=== PATIENT | female | born 1995 | race Caucasian/White ===

== ENCOUNTER 2020-04-30 18:00 | Inpatient (IN) | payer OTHER ==
[2020-04-30 18:46] LABS: Amphetamine,Urine NEGATIVE (NEGATIVE); Barbiturate,Urine NEGATIVE (NEGATIVE); Benzodiazepine,Urine NEGATIVE (NEGATIVE); Cocaine,Urine NEGATIVE (NEGATIVE); Methadone,Urine NEGATIVE (NEGATIVE); Opiate,Urine NEGATIVE (NEGATIVE); PCP,Urine NEGATIVE (NEGATIVE); THC,Urine NEGATIVE (NEGATIVE)
[2020-04-30] MEDS: CYTOTEC PO SCH ×2 (20:01→22:13)
[2020-04-30 20:05] LABS: Absolute Neutrophil Ct (ANC) 4.28 (1.4-6.9); Hematocrit 35.1 % (35-47); Hemoglobin 11.8 gm/dl (12.0-16.0); Mean Cell Volume 85.8 fl (78-100); Mean Corpuscular Hemoglobin 28.9 pg (26-32); Mean Corpuscular Hgb Concent. 33.6 g/dl (32-36); Mean Platelet Volume 11.5 fl (7.5-11.0); Platelet Count 188 K/mm3 (150-450); Red Blood Count 4.09 M/mm3 (4.1-5.4); Red Cell Distribution Width 13.6 % (11.5-14.0); White Blood Count 7.2 K/mm3 (4.0-10.5)
[2020-05-01] MEDS: CYTOTEC PO SCH ×4 (00:01→06:05)
[2020-05-01 02:18] LABS: Eosinophil 3 % (0.00-3.0); Lymphocytes 33 % (24-44); Monocyte 2 % (0.0-12.0); Neutrophils 62 % (36.0-66.0); Platelet Estimate NORMAL (NORMAL); Total Cells Counted 100
[2020-05-01] MEDS ORDERED: CYTOTEC PO SCH (07:15)
[2020-05-01] MEDS ORDERED: BRETHINE 1 MG/ML SQ PRN (08:11)
[2020-05-01] MEDS ORDERED: PITOCIN 30 UNITS/ LR 500 ML 30 UNITS/500 ML IV.SOLN. IV SCH (08:30)
[2020-05-01] MEDS: Lactated Ringers 1,000 ML IV SCH ×2 (09:20→13:30)
[2020-05-01] MEDS ORDERED: OB EPIDURAL NAROPIN/SUFENTANIL IN NACL EPIDURAL PRN (10:04)
[2020-05-01] MEDS ORDERED: Lactated Ringers 1,000 ML IV ONE ×2 (10:04→14:27)
[2020-05-01] MEDS ORDERED: Ephedrine Sulfate 50 MG/ML IV PRN (10:04)
[2020-05-01] MEDS ORDERED: XYLOCAINE 1% HCL 20 ML MDV IJ PRN (12:19)
[2020-05-01] MEDS ORDERED: SOD CITRATE-CITRIC ACID SOLN PO ONE (12:59)
[2020-05-01] MEDS ORDERED: Pepcid 20 MG VIAL IV SCH (13:00)
[2020-05-01] MEDS ORDERED: Reglan 10 MG/2 ML IV SCH (13:00)
[2020-05-01] MEDS ORDERED: CEFAZOLIN 2 GM-D5W BAG** 2 GM/50 ML ML IV SCH (13:30)
[2020-05-01] MEDS ORDERED: Zofran 4 MG/2 ML VIAL IV PRN (13:32)
[2020-05-01] MEDS ORDERED: BENADRYL 50 MG/ML IV PRN (13:32)
[2020-05-01] MEDS ORDERED: DEMEROL 50 MG IV PRN (13:32)
[2020-05-01] MEDS ORDERED: CLARITIN 10 MG PO PRN (13:32)
[2020-05-01] MEDS ORDERED: HOLD NARCOTIC ANALGESICS AND SEDATIVES X24 HR MC PRN (13:32)
[2020-05-01] MEDS ORDERED: Nubain 10 MG/ML IV PRN (13:32)
[2020-05-01] MEDS ORDERED: MORPHINE SULFATE 2 MG INJ IV PRN (13:32)
[2020-05-01] MEDS ORDERED: XYLOCAINE 2%/Epi 1:200000 20ML VIAL MPF ONE (13:36)
[2020-05-01] MEDS ORDERED: SUBLIMAZE 100 MCG/2 ML ONE (13:36)
[2020-05-01 13:48] LABS: Hematocrit 36.9 % (35-47); Hemoglobin 12.3 gm/dl (12.0-16.0); Mean Cell Volume 85.2 fl (78-100); Mean Corpuscular Hemoglobin 28.4 pg (26-32); Mean Corpuscular Hgb Concent. 33.3 g/dl (32-36); Mean Platelet Volume 11.9 fl (7.5-11.0); Platelet Count 207 K/mm3 (150-450); Red Blood Count 4.33 M/mm3 (4.1-5.4); Red Cell Distribution Width 13.7 % (11.5-14.0); White Blood Count 14.5 K/mm3 (4.0-10.5)
[2020-05-01 13:59] LABS: INR 0.97 (0.8-3.0)
[2020-05-01] MEDS ORDERED: Sodium Chloride 0.9% 10 ML FLUSH Syringe IJ SCH (14:00)
[2020-05-01 14:02] LABS: PTT 27.9 SECONDS (25.3-37.0)
[2020-05-01] MEDS ORDERED: PHENYLEPHRINE HCL ONE (14:07)
[2020-05-01] MEDS ORDERED: Pitocin 10 UNITS/ML ONE (14:12)
[2020-05-01] MEDS ORDERED: Ephedrine Sulfate 50 MG/ML ONE (14:27)
[2020-05-01] MEDS ORDERED: Astramorph-Pf 5 MG/10 ML ONE (14:32)
[2020-05-01] MEDS ORDERED: Naropin 0.5% 30 ML VIAL ONE (14:35)
[2020-05-01] MEDS ORDERED: EPINEPHRINE 1MG/ML AMP ONE (14:35)
[2020-05-01] MEDS ORDERED: Decadron 4 MG INJ ONE (14:35)
[2020-05-01 14:49] LABS: Appearance SLIGHTLY CLOUDY (CLEAR); Bilirubin NEGATIVE (NEGATIVE); Blood NEGATIVE Ery/ul (0-5); Epithelial Cells RARE /HPF (FEW); Glucose NEGATIVE (NEGATIVE); Ketones NEGATIVE (NEGATIVE); Leukocyte Esterase NEGATIVE (NEGATIVE); Mucus MANY /HPF (NEGATIVE); Nitrite NEGATIVE (NEGATIVE); Protein,Urine Dip 30 (Negative); RBC 0-2 /HPF (0-2); Specific Gravity 1.026 (1.005-1.025); Urobilinogen NEGATIVE mg/dL (0-1)
[2020-05-01 14:51] LABS: ABO TYPING A; Antibody Screen NEGATIVE (NEGATIVE); RH TYPING POSITIVE
[2020-05-01] MEDS ORDERED: Narcan 0.4 MG/ML IV PRN (15:00)
[2020-05-01] MEDS ORDERED: TYLENOL EXTRA STRENGTH 500 MG PO PRN (15:21)
[2020-05-01] MEDS ORDERED: Dextrose 5%-Lr IV Solution 1000 ML 1,000 ML IV SCH (16:00)
[2020-05-01] MEDS: Colace 100 MG PO SCH (22:23)
[2020-05-02] MEDS: Lactated Ringers 1,000 ML IV SCH (00:54)
[2020-05-02] MEDS: MOTRIN 400 MG PO PRN ×3 (05:29→19:36)
[2020-05-02] MEDS: PERCOCET TABLET 5/325MG PO PRN ×2 (05:29→12:26)
[2020-05-02 06:21] LABS: Absolute Neutrophil Ct (ANC) 10.58 (1.4-6.9); BASOPHIL % 0.1 % (0.0-0.4); Basophil (Absolute #) 0.01 (0-0.4); Eosinophil % 0.1 % (0.00-5.0); Eosinophil (Absolute #) 0.01 (0-0.5); Hematocrit 28.8 % (35-47); Hemoglobin 9.5 gm/dl (12.0-16.0); Lymphocyte (Absolute #) 1.59 (1.0-4.6); Mean Cell Volume 87.8 fl (78-100); Mean Platelet Volume 12.2 fl (7.5-11.0); Monocyte (Absolute #) 1.01 (0.0-1.3); Monocytes % 7.7 % (0.0-12.0); Neutrophil % 80.1 % (36.0-66.0); Platelet Count 172 K/mm3 (150-450); Red Blood Count 3.28 M/mm3 (4.1-5.4); Red Cell Distribution Width 13.7 % (11.5-14.0); White Blood Count 13.2 K/mm3 (4.0-10.5)
[2020-05-02 09:20] VITALS: O2SAT 100
[2020-05-02] MEDS: FERREX 150 PO SCH (12:27)
[2020-05-02] MEDS: Colace 100 MG PO SCH ×2 (12:27→21:02)
[2020-05-02] MEDS: NORCO 5/325 MG PO PRN (19:36)
[2020-05-02] MEDS ORDERED: LANSINOH 40 GM TOP PRN (20:59)
[2020-05-03] MEDS: MOTRIN 400 MG PO PRN ×3 (01:14→15:55)
[2020-05-03] MEDS: NORCO 5/325 MG PO PRN ×4 (01:15→16:59)
[2020-05-03] MEDS: FERREX 150 PO SCH (09:07)
[2020-05-03] MEDS: Colace 100 MG PO SCH (09:07)
[2020-05-03] MEDS ORDERED: Adacel Vial IM ONE (10:00)
--- NOTE | 2020-05-03 11:55 | OP ---
SURGERY DATE/TIME: 05/01/2020 1349 PREOPERATIVE DIAGNOSES: 1) Nonreassuring heart tones. 2) Term intrauterine in labor. POSTOPERATIVE DIAGNOSES: 1) Nonreassuring heart tones. 2) Term intrauterine in labor. PROCEDURE: Primary low transverse section. SURGEON: Gui Oneal M.D. ANESTHESIA: Epidural by Ted Ellis CRNA. ESTIMATED BLOOD LOSS: 400 ml. IV FLUIDS: 600 cc of Crystalloid. URINE OUTPUT: 250 ml clear straw-colored urine. SPECIMEN: Placenta was sent for pathology. DESCRIPTION OF PROCEDURE: The patient is a patient of Dr. Moreno who is 2, para 1 at 39 weeks. She was in labor and developed nonreassuring heart tones with persistent late decelerations and variable decelerations. The decision was made after informed, written consent was obtained. I discussed the bleeding, risk of infection and damage to surrounding structures including bladder and ureter to the patient. She elected to proceed with primary section as advised at that point. She went to the OR after she had her previously placed laboring epidural dosed by anesthesia. Prepped and draped in the usual sterile fashion. After adequate level of anesthesia assessed, a low transverse skin incision was made by knife and carried down through the subcutaneous fat to the level of the fascia. The fascia was nicked on both sides of the midline and extended in horizontal fashion using curved Villalta scissors. The superior free edge of the fascia was grasped with Pedrito clamps and the underlying rectus muscles were dissected free. The same was repeated inferiorly. The peritoneal cavity was opened and extended horizontal and a bladder blade was created and reflected over the lower uterine segment. Horizontal uterine incision was made by knife and carried down to the level of the amniotic membranes which were carefully artificially ruptured. A viable male infant was delivered from the vertex presentation with nuchal and body cord present. The cord was clamped and cub. He had a strong cry after bulb suctioning the oropharynx and nares. He was handed off to the awaiting nursery team. The uterus was exteriorized after the placenta was manually extracted. Lap sponge was used to curette the uterine cavity to remove any blood, clot or remaining membranes. Next, the uterine incision was closed with #1 chromic in a running locked fashion. Good closure and good hemostasis were achieved. There was a small area of oozing in the lower uterine segment which was controlled with two figure-of-8 sutures placed. Afterwards adequate hemostasis was achieved. Good closure of the uterine incision was noted upon return to the peritoneal cavity after the posterior cul-de-sac was wiped free of blood and clot. The lateral gutters were wiped free of blood and clot and again the incision was inspected and noted to be hemostatic with good closure. Next, the fascia was closed with 0 Vicryl in a running fashion. Good closure and good hemostasis were achieved at this level. The subcutaneous fat was irrigated with warm, sterile saline and any areas of oozing were cauterized with electrocautery. The skin layer was closed with 4-0 undyed Vicryl in a running subcuticular fashion. Steri-Strips and occlusive dressing were placed over the incision and the patient was transferred to the recovery room in good condition.
[2020-05-03 14:01] LABS: Absolute Neutrophil Ct (ANC) 9.46 (1.4-6.9); BASOPHIL % 0.2 % (0.0-0.4); Basophil (Absolute #) 0.02 (0-0.4); Eosinophil % 1.1 % (0.00-5.0); Eosinophil (Absolute #) 0.13 (0-0.5); Hematocrit 30.7 % (35-47); Hemoglobin 9.9 gm/dl (12.0-16.0); Lymphocyte (Absolute #) 1.88 (1.0-4.6); Lymphocytes % 15.6 % (24.0-44.0); Mean Cell Volume 89.5 fl (78-100); Mean Corpuscular Hemoglobin 28.9 pg (26-32); Mean Corpuscular Hgb Concent. 32.2 g/dl (32-36); Mean Platelet Volume 11.1 fl (7.5-11.0); Monocyte (Absolute #) 0.59 (0.0-1.3); Monocytes % 4.9 % (0.0-12.0); Neutrophil % 78.2 % (36.0-66.0); Platelet Count 193 K/mm3 (150-450); Red Blood Count 3.43 M/mm3 (4.1-5.4); Red Cell Distribution Width 14.1 % (11.5-14.0); White Blood Count 12.1 K/mm3 (4.0-10.5)
[2020-05-03 15:06] VITALS: BP 137/86; PULSE 78
== END 2020-05-03 19:15 | disposition home or self-care (01) | DRG 788 ==
LOC: OB 18:00 → OBSVTOIN 05-01 12:40
PROVIDERS: ADMIT Family Medicine; ATTEND Family Medicine
PROC: 10D00Z1 Extraction of Products of Conception, Low, Open Approach (ICD-10-PCS; principal; 2020-05-01)
DX: O76 Abnormality in fetal heart rate and rhythm complicating labor and delivery (principal); Z3A.39 39 weeks gestation of pregnancy; Z37.0 Single live birth
CPT/HCPCS: 36415; 64488; 76937; 76942; 80307; 81001; 85025; 85027; 85610; 85730; 86850; 86900; 86901; 87086; 87340; 88307; 94799; G0378; J0171; J1100; J1200; J2274; J2370; J2590; J2795; J3010; L0625; A9270-GY

== ENCOUNTER 2022-03-22 05:13 | Inpatient (IN) | payer OTHER ==
[~2022-03-22 05:13] MED LIST: CEFAZOLIN 2 GM-D5W BAG** 2 GM/50 ML ML IV SCH; Lactated Ringers 1,000 ML IV ONE; Pepcid 20 MG VIAL IV SCH; Reglan 10 MG/2 ML IV SCH; SOD CITRATE-CITRIC ACID SOLN PO SCH
[2022-03-22] MEDS: Lactated Ringers 1,000 ML IV SCH (05:24)
[2022-03-22 05:46] LABS: Hematocrit 33.9 % (35-47); Hemoglobin 11.1 g/dL (12.0-16.0); Mean Cell Volume 83.1 fL (78-100); Mean Corpuscular Hemoglobin 27.2 pg (26-32); Mean Corpuscular Hgb Concent. 32.7 g/dL (32-36); Mean Platelet Volume 11.8 fL (7.5-11.0); Platelet Count 261 x10^3/uL (150-450); Red Blood Count 4.08 x10^6/uL (4.1-5.4); Red Cell Distribution Width 13.8 % (11.5-14.0); White Blood Count 8.7 x10^3/uL (4.0-10.5)
[2022-03-22 06:01] LABS: INR 0.89 (0.8-3.0); PROTIME 9.5 SECONDS (9.4-12.5); PTT 25.4 SECONDS (25.1-36.5)
[2022-03-22 06:28] LABS: ABO TYPING A; Antibody Screen NEGATIVE (NEGATIVE); RH TYPING POSITIVE
[2022-03-22] MEDS ORDERED: Pitocin 10 UNITS/ML ONE ×3 (07:26→08:19)
[2022-03-22] MEDS ORDERED: Astramorph-Pf 5 MG/10 ML ONE (07:27)
[2022-03-22] MEDS ORDERED: Lactated Ringers 1,000 ML IV ONE (07:42)
[2022-03-22] MEDS ORDERED: CLARITIN 10 MG PO PRN (08:00)
[2022-03-22] MEDS ORDERED: Nubain 10 MG/ML IV PRN (08:00)
[2022-03-22] MEDS ORDERED: Dulcolax 10 MG SUPP PR PRN (08:00)
[2022-03-22] MEDS ORDERED: Anucort-HC SUPPOSITORY PR PRN (08:00)
[2022-03-22] MEDS ORDERED: Narcan 0.4 MG/ML IV PRN (08:00)
[2022-03-22] MEDS ORDERED: CORTISONE 1% CREAM TP PRN (08:00)
[2022-03-22] MEDS ORDERED: Zofran 4 MG/2 ML VIAL IV PRN (08:00)
[2022-03-22] MEDS ORDERED: BENADRYL 50 MG/ML IV PRN (08:00)
[2022-03-22] MEDS ORDERED: SUBLIMAZE 100 MCG/2 ML ONE (08:09)
[2022-03-22] MEDS ORDERED: Versed 2 MG/2 ML Injection ONE (08:11)
[2022-03-22 08:33] LABS: Appearance CLEAR (CLEAR); Bilirubin NEGATIVE (NEGATIVE); Dipstick done @ ? MAIN LAB; Glucose NEGATIVE (NEGATIVE); Ketones NEGATIVE (NEGATIVE); Nitrite NEGATIVE (NEGATIVE); Protein,Urine Dip NEGATIVE (Negative); RBC NEGATIVE Ery/ul (0-5); Specific Gravity 1.025 (1.005-1.025); Urobilinogen 0.2 mg/dL (0-1)
[2022-03-22] MEDS ORDERED: Marcaine 0.5%/Epinephrine 10 ML ONE (08:35)
[2022-03-22 08:43] LABS: Mucus SLIGHT /HPF (NEGATIVE); RBC 0-2 /HPF (0-2)
[2022-03-22 08:45] LABS: Bacteria FEW /HPF (NEGATIVE); Epithelial Cells RARE /HPF (FEW); Urine Cultured Indicated? YES
[2022-03-22 08:54] LABS: Amphetamine,Urine NEGATIVE (NEGATIVE); Barbiturate,Urine NEGATIVE (NEGATIVE); Benzodiazepine,Urine NEGATIVE (NEGATIVE); Cocaine,Urine NEGATIVE (NEGATIVE); Methadone,Urine NEGATIVE (NEGATIVE); Opiate,Urine NEGATIVE (NEGATIVE); PCP,Urine NEGATIVE (NEGATIVE); THC,Urine NEGATIVE (NEGATIVE)
[2022-03-22] MEDS ORDERED: TORAdol 30 mg Injection ONE (08:59)
[2022-03-22] MEDS ORDERED: BENADRYL 50 MG/ML ONE (09:00)
[2022-03-22] MEDS ORDERED: LANSINOH 40 GM TOP PRN (09:00)
[2022-03-22] MEDS ORDERED: DEMEROL 50 MG ONE (09:32)
[2022-03-22] MEDS ORDERED: Hydromorphone 1 mg/ml Injection ONE (09:33)
[2022-03-22 09:49] LABS: Appearance CLEAR (CLEAR); Bilirubin NEGATIVE (NEGATIVE); Dipstick done @ ? MAIN LAB; Glucose NEGATIVE (NEGATIVE); Ketones NEGATIVE (NEGATIVE); Nitrite NEGATIVE (NEGATIVE); Protein,Urine Dip NEGATIVE (Negative); RBC TRACE-INTACT Ery/ul (0-5); Specific Gravity 1.025 (1.005-1.025); Urobilinogen 0.2 mg/dL (0-1)
[2022-03-22 09:51] LABS: Epithelial Cells RARE /HPF (FEW); Mucus SLIGHT /HPF (NEGATIVE)
[2022-03-22] MEDS ORDERED: DEMEROL 50 MG IV PRN (10:00)
[2022-03-22] MEDS ORDERED: HOLD NARCOTIC ANALGESICS AND SEDATIVES X24 HR MC PRN (10:00)
[2022-03-22] MEDS ORDERED: MORPHINE SULFATE 2 MG INJ IV PRN (10:00)
--- NOTE | 2022-03-22 10:17 | OP ---
SURGERY DATE/TIME: 03/22/2022 0734 PREOPERATIVE DIAGNOSES: 1) Term intrauterine . 2) History of prior section. 3) Desires permanent sterilization. POSTOPERATIVE DIAGNOSES: 1) Term intrauterine . 2) History of prior section. 3) Desires permanent sterilization. PROCEDURES: 1) Repeat low transverse section. 2) Bilateral tubal ligation. SURGEON: Gui Oneal M.D. ESTIMATED BLOOD LOSS: 500 ml. URINE OUTPUT: 100 ml of clear straw-colored urine. ANESTHESIA: Spinal by Jorge Blanco CRNA. SPECIMENS: 1) Bilateral fallopian tube segments. 2) Placenta was sent off pathology. DESCRIPTION OF PROCEDURE: After informed written consent was obtained, the patient was taken to the operating room. She did have on the chart tubal ligation consent initially signed on 01/02/2022 by the patient. I verified that she wants permanent sterilization prior to the procedure and she elected to proceed. She understood the permanent nature and accepted the failure rate of 1 in 300. She was prepped and draped in the usual sterile fashion after spinal anesthesia. Anesthesia was assessed. The patient required some propofol prior to beginning the procedure due to some mild pain. A low transverse skin incision was made by knife and carried down through the subcutaneous fat to the level of the fascia. The fascia was nicked in the midline and extended horizontal using curved Villalta scissors. Superior free edge of the fascia was grasped with Pedrito clamps and the underlying rectus muscles were dissected free. The same was repeated inferiorly. The peritoneal cavity was opened and extended horizontally. The bladder was adhesed to the middle anterior segment of the uterus therefore I carefully took down this area with Metzenbaum scissors. After that was cleared and a bladder flap was created a knife made a horizontal uterine incision then carried down to the level of the amniotic membranes which were carefully artificially ruptured. Clear fluid was encountered and a viable female infant was delivered easily from the vertex presentation. The oropharynx and nares were bulb suctioned free. The cord was clamped and cut and she was handed off to the awaiting nursery team. The placenta was manually extracted and the uterus was exteriorized. Uterine cavity sponge curetted clean with lap sponge and then uterine incision was closed with #1 chromic in a running locked fashion with good closure, good hemostasis. Another suture was used to close the defect where the bladder was adhesed which was above the uterine incision. Running #1 chromic was used to control bleeding there and then a figure-of-8 was placed with 2-0 Vicryl with good closure and good hemostasis achieved all around. The left fallopian tube was identified and followed down to the fimbrial edge. It was grasped with a Mila and then cautery used to make a window in the mesoappendix. The proximal and distal tube segments were then ligated with chromic tie. Interceding tube segment was dissected free with Metzenbaum scissors. The edge of the tube identified, cauterized with electrocautery on the left. The same was repeated on the right side without incident. The posterior cul-de-sac was wiped free of blood and clot and the uterus was returned to the peritoneal cavity. Again, the uterine incision was inspected and noted to be hemostatic. The lateral gutters were wiped free of blood and clot. Next, the fascia was closed with 0 Vicryl in a running fashion. Good closure and good hemostasis were achieved at this level. Subcutaneous fat was irrigated with warm, sterile saline and any areas of bleeding were cauterized with electrocautery. Finally, the skin layer was closed with 4-0 undyed Vicryl in a running subcuticular fashion. Steri-Strips and occlusive dressing were placed over the incision. Instrument count was noted to be within normal limits. The patient was transferred to the recovery room in good condition.
[2022-03-22] MEDS: Dextrose 5%-Lr IV Solution 1000 ML 1,000 ML IV SCH ×2 (11:27→19:35)
[2022-03-22] MEDS: Mylicon 80MG PO PRN (18:25)
[2022-03-22] MEDS: PERCOCET TABLET 5/325MG PO PRN (19:35)
[2022-03-23] MEDS: PERCOCET TABLET 5/325MG PO PRN ×2 (00:13→07:51)
[2022-03-23] MEDS: Mylicon 80MG PO PRN ×3 (00:13→22:05)
[2022-03-23] MEDS: MOTRIN 400 MG PO PRN ×3 (05:11→20:25)
[2022-03-23 05:35] LABS: Absolute Neutrophil Ct (ANC) 5.34 x10^3/uL (1.4-6.9); Basophil (Absolute #) 0.06 x10^3/uL (0-0.4); Eosinophil % 3.3 % (0.00-5.0); Eosinophil (Absolute #) 0.29 x10^3/uL (0-0.5); Hematocrit 27.7 % (35-47); Hemoglobin 8.7 g/dL (12.0-16.0); Lymphocyte (Absolute #) 2.28 x10^3/uL (1.0-4.6); Lymphocytes % 26.1 % (24.0-44.0); Mean Corpuscular Hemoglobin 26.7 pg (26-32); Mean Corpuscular Hgb Concent. 31.4 g/dL (32-36); Mean Platelet Volume 11.1 fL (7.5-11.0); Monocyte (Absolute #) 0.73 x10^3/uL (0.0-1.3); Monocytes % 8.4 % (0.0-12.0); Platelet Count 197 x10^3/uL (150-450); Red Blood Count 3.26 x10^6/uL (4.1-5.4); White Blood Count 8.7 x10^3/uL (4.0-10.5)
[2022-03-23] MEDS: Docusate Sodium 100 MG PO SCH ×3 (07:08→22:05)
[2022-03-23] MEDS ORDERED: Sodium Chloride 0.9% 10 ML FLUSH Syringe IV PRN (08:00)
--- NOTE | 2022-03-23 08:29 | PCM.NOTE ---
Date and Time: 03/23/22823 Subjective Assessment: mild lochia, pain is controlled. no problems or concerns overnight Objective Exam General Appearance: no apparent distress Neurologic Exam: alert, oriented x 3 Respiratory Exam: normal breath sounds, lungs clear, No respiratory distress Cardiovascular Exam: regular rate/rhythm, normal heart sounds Gastrointestinal/Abdomen Exam: soft (dressing clean, dry, intact) Extremity Exam: normal inspection, normal range of motion OBJECTIVE DATA Vital Signs: Vital Signs - 24 hr Temp Pulse Resp BP Pulse Ox 03/23/22 08:00 100 03/23/22 07:57 97.6 F 72 16 116/67 100 03/23/22 07:00 100 03/23/22 06:00 100 03/23/22 05:00 100 03/23/22 04:00 98 F 64 18 122/60 100 03/23/22 03:00 99 03/23/22 02:00 100 03/23/22 01:00 100 03/23/22 00:00 98.1 F 68 16 123/59 100 03/22/22 22:00 100 03/22/22 21:00 100 03/22/22 20:56 100 03/22/22 20:00 100 03/22/22 19:46 98.4 F 80 18 132/65 100 03/22/22 19:00 100 03/22/22 18:00 100 03/22/22 17:00 100 03/22/22 16:00 99 03/22/22 15:00 98 03/22/22 14:00 98.1 F 80 14 118/57 98 03/22/22 13:00 61 12 116/55 98 03/22/22 12:00 72 12 115/69 99 03/22/22 11:00 98.4 F 78 14 120/62 100 03/22/22 10:45 67 14 100 03/22/22 10:30 59 L 14 117/63 100 03/22/22 10:15 69 126/66 100 03/22/22 10:00 97.8 F 81 14 137/67 100 Pain Assessment - Last Documented Pain Intensity [Bilateral 5 Lower] Pain Intensity 5 Pain Scale Used 0-10 Pain Scale Intake and Output: Intake & Output 03/20/22 03/21/22 03/22/22 03/23/22 11:59 11:59 11:59 11:59 Intake Total 5015 Output Total 2873 Balance 2465 Weight 97.522 kg Lab Results: Lab Results-Last 24 Hours 03/22/22 03/22/22 03/22/22 Range/Units 08:00 08:00 09:00 WBC (4.0-10.5) x10^3/uL RBC (4.1-5.4) x10^6/uL Hgb (12.0-16.0) g/dL Hct (35-47) % MCV (78-100) fL MCH (26-32) pg MCHC (32-36) g/dL RDW (11.5-14.0) % Plt Count (150-450) x10^3/uL MPV (7.5-11.0) fL Gran % (36.0-66.0) % Immature Gran % (Auto) (0.00-0.4) % Nucleat RBC Rel Count (0.00-0.1) % Eos # (Auto) (0-0.5) x10^3/uL Immature Gran # (Auto) (0.00-0.03) x10^3u/L Absolute Lymphs (auto) (1.0-4.6) x10^3/uL Absolute Monos (auto) (0.0-1.3) x10^3/uL Absolute Nucleated RBC (0.00-0.01) x10^3u/L Lymphocytes % (24.0-44.0) % Monocytes % (0.0-12.0) % Eosinophils % (0.00-5.0) % Basophils % (0.0-0.4) % Absolute Granulocytes (1.4-6.9) x10^3/uL Basophils # (0-0.4) x10^3/uL Urinalys Dipstick Clnc MAIN LAB MAIN LAB Urine Color YELLOW YELLOW (YELLOW) Urine Appearance CLEAR CLEAR (CLEAR) Urine pH 6.0 7.0 (5-6) Ur Specific Otis 1.025 1.025 (1.005-1.025) Urine Protein Cancelled POC Urine Protein Conf NEGATIVE NEGATIVE (Negative) Urine Ketones NEGATIVE NEGATIVE (NEGATIVE) Urine Blood Cancelled Urine Nitrite NEGATIVE NEGATIVE (NEGATIVE) Urine Bilirubin NEGATIVE NEGATIVE (NEGATIVE) Urine Urobilinogen 0.2 0.2 (0-1) mg/dL Ur Leukocyte Esterase Cancelled Urine Leukocytes SMALL NEGATIVE (NEGATIVE) Urine WBC (Auto) 11-15 3-5 (0-5) /HPF Urine RBC (Auto) 0-2 3-5 (0-2) /HPF U Epithel Cells (Auto) RARE RARE (FEW) /HPF Urine Bacteria (Auto) FEW NONE (NEGATIVE) /HPF Urine RBC NEGATIVE TRACE-INTACT (0-5) True/ul U Non-Squamous Epi Cells Cancelled Urine Mucus (Auto) SLIGHT SLIGHT (NEGATIVE) /HPF Ur Culture Indicated? YES Urine Glucose NEGATIVE NEGATIVE (NEGATIVE) mg/dL Urine Opiates Level NEGATIVE (NEGATIVE) Ur Methadone NEGATIVE (NEGATIVE) Urine Barbiturates NEGATIVE (NEGATIVE) Ur Phencyclidine (PCP) NEGATIVE (NEGATIVE) Urine Amphetamine NEGATIVE (NEGATIVE) U Benzodiazepine Level NEGATIVE (NEGATIVE) Urine Cocaine NEGATIVE (NEGATIVE) Urine Marijuana (THC) NEGATIVE (NEGATIVE) 03/23/22 Range/Units 05:30 WBC 8.7 (4.0-10.5) x10^3/uL RBC 3.26 L (4.1-5.4) x10^6/uL Hgb 8.7 L D (12.0-16.0) g/dL Hct 27.7 L (35-47) % MCV 85.0 (78-100) fL MCH 26.7 (26-32) pg MCHC 31.4 L (32-36) g/dL RDW 14.0 (11.5-14.0) % Plt Count 197 (150-450) x10^3/uL MPV 11.1 H (7.5-11.0) fL Gran % 61.0 (36.0-66.0) % Immature Gran % (Auto) 0.5 H (0.00-0.4) % Nucleat RBC Rel Count 0.0 (0.00-0.1) % Eos # (Auto) 0.29 (0-0.5) x10^3/uL Immature Gran # (Auto) 0.04 H (0.00-0.03) x10^3u/L Absolute Lymphs (auto) 2.28 (1.0-4.6) x10^3/uL Absolute Monos (auto) 0.73 (0.0-1.3) x10^3/uL Absolute Nucleated RBC 0.00 (0.00-0.01) x10^3u/L Lymphocytes % 26.1 (24.0-44.0) % Monocytes % 8.4 (0.0-12.0) % Eosinophils % 3.3 (0.00-5.0) % Basophils % 0.7 (0.0-0.4) % Absolute Granulocytes 5.34 (1.4-6.9) x10^3/uL Basophils # 0.06 (0-0.4) x10^3/uL Urinalys Dipstick Clnc Urine Color (YELLOW) Urine Appearance (CLEAR) Urine pH (5-6) Ur Specific Otis (1.005-1.025) Urine Protein POC Urine Protein Conf (Negative) Urine Ketones (NEGATIVE) Urine Blood Urine Nitrite (NEGATIVE) Urine Bilirubin (NEGATIVE) Urine Urobilinogen (0-1) mg/dL Ur Leukocyte Esterase Urine Leukocytes (NEGATIVE) Urine WBC (Auto) (0-5) /HPF Urine RBC (Auto) (0-2) /HPF U Epithel Cells (Auto) (FEW) /HPF Urine Bacteria (Auto) (NEGATIVE) /HPF Urine RBC (0-5) True/ul U Non-Squamous Epi Cells Urine Mucus (Auto) (NEGATIVE) /HPF Ur Culture Indicated? Urine Glucose (NEGATIVE) mg/dL Urine Opiates Level (NEGATIVE) Ur Methadone (NEGATIVE) Urine Barbiturates (NEGATIVE) Ur Phencyclidine (PCP) (NEGATIVE) Urine Amphetamine (NEGATIVE) U Benzodiazepine Level (NEGATIVE) Urine Cocaine (NEGATIVE) Urine Marijuana (THC) (NEGATIVE) Assessment/Plan (1) Delivery by section Current Visit: No Status: Acute Assessment & Plan: routine post-op care Code(s): CHK7140 - (2) Tubal ligation status Current Visit: Yes Status: Acute Code(s): Z98.51 - TUBAL LIGATION STATUS
[2022-03-23] MEDS: FERREX 150 PO SCH (08:45)
[2022-03-23] MEDS ORDERED: Adacel Vial IM ONE (10:00)
[2022-03-23 10:46] LABS: HBsAg Screen Negative (Negative)
[2022-03-23] MEDS: NORCO 5/325 MG PO PRN ×3 (12:38→22:05)
[2022-03-23] MEDS: TYLENOL EXTRA STRENGTH 500 MG PO PRN (20:25)
[2022-03-23] MEDS: Dextrose 5%-Lr IV Solution 1000 ML 1,000 ML IV SCH ×2 (20:44→20:45)
[2022-03-23] MEDS: Lactated Ringers 1,000 ML IV SCH (20:45)
[2022-03-24 00:53] VITALS: O2SAT 97
[2022-03-24] MEDS: MOTRIN 400 MG PO PRN ×2 (02:30→10:35)
[2022-03-24] MEDS: TYLENOL EXTRA STRENGTH 500 MG PO PRN ×2 (02:30→10:36)
[2022-03-24 05:46] LABS: Absolute Neutrophil Ct (ANC) 7.04 x10^3/uL (1.4-6.9); Basophil (Absolute #) 0.02 x10^3/uL (0-0.4); Eosinophil % 0.6 % (0.00-5.0); Eosinophil (Absolute #) 0.05 x10^3/uL (0-0.5); Hematocrit 28.5 % (35-47); Hemoglobin 9.2 g/dL (12.0-16.0); Lymphocyte (Absolute #) 0.67 x10^3/uL (1.0-4.6); Lymphocytes % 8.3 % (24.0-44.0); Mean Cell Volume 84.3 fL (78-100); Mean Corpuscular Hemoglobin 27.2 pg (26-32); Mean Corpuscular Hgb Concent. 32.3 g/dL (32-36); Mean Platelet Volume 11.4 fL (7.5-11.0); Monocyte (Absolute #) 0.22 x10^3/uL (0.0-1.3); Monocytes % 2.7 % (0.0-12.0); Neutrophil % 87.7 % (36.0-66.0); Platelet Count 234 x10^3/uL (150-450); Red Blood Count 3.38 x10^6/uL (4.1-5.4); Red Cell Distribution Width 14.3 % (11.5-14.0)
[2022-03-24] MEDS: NORCO 5/325 MG PO PRN ×2 (06:12→14:31)
[2022-03-24] MEDS: Mylicon 80MG PO PRN (06:12)
[2022-03-24 06:48] LABS: ALBUMIN 2.8 g/dL (3.5-5.0); ALKALINE PHOSPHATASE 94 U/L (38-126); ANION GAP 7.4 MEQ/L (5-15); BLOOD UREA NITROGEN 6 mg/dL (7-17); CHLORIDE 104 mmol/L (98-107); Calcium 7.5 mg/dL (8.4-10.2); Carbon Dioxide 25 mmol/L (22-30); Creatinine 1 0.49 mg/dL (0.52-1.04); EST GLOMERULAR FILTRATION RATE > 60.0 ML/MIN; Glucose 94 mg/dL (74-106); Potassium 3.9 mmol/L (3.5-5.1); SGOT/AST 24 U/L (14-36); SGPT/ALT 16 U/L (0-35); SODIUM 133 mmol/L (137-145); Total Protein 5.6 g/dL (6.3-8.2)
[2022-03-24 08:29] VITALS: PULSE 83
--- NOTE | 2022-03-24 08:45 | PCM.DS ---
Discharge Summary Date of Admission: 03/22/22 05:14 Admitting Physician: RONDA AGARWAL Consults: Consults on Case 03/21/22 13:54 Notify Anesthesia Provider PRN 03/22/22 05:00 Notify Physician OF ADMISSION Primary Care Provider: RONDA AGARWAL Allergies Allergies No Known Drug Allergies Allergy (Verified 03/22/22 05:30) Hospital Summary - Hospital Course Hospital Course: patient had repeat with BTL on 03-22, no complications. pain is controlled, mild lochia and tolerating po intake post-op - Vitals & Intake/Output Vital Signs: Vital Signs Temperature 98.1 F 03/24/22 08:00 Pulse Rate 83 03/24/22 08:00 Respiratory Rate 18 03/24/22 08:00 Blood Pressure 114/59 03/24/22 08:00 O2 Sat by Pulse Oximetry 97 03/24/22 04:00 Intake & Output: Intake & Output 03/21/22 03/22/22 03/23/22 03/24/22 11:59 11:59 11:59 11:59 Intake Total 5015 1420 Output Total 2550 Balance 2465 1420 Weight 97.522 kg - Lab Result Diagrams: 03/24/22 05:30 03/24/22 05:30 Lab Results-Last 24 Hrs: Lab Results-Last 24 Hours 03/22/22 03/24/22 03/24/22 Range/Units 05:36 05:30 05:30 WBC 8.0 (4.0-10.5) x10^3/uL RBC 3.38 L (4.1-5.4) x10^6/uL Hgb 9.2 L (12.0-16.0) g/dL Hct 28.5 L (35-47) % MCV 84.3 (78-100) fL MCH 27.2 (26-32) pg MCHC 32.3 (32-36) g/dL RDW 14.3 H (11.5-14.0) % Plt Count 234 (150-450) x10^3/uL MPV 11.4 H (7.5-11.0) fL Gran % 87.7 H (36.0-66.0) % Immature Gran % (Auto) 0.5 H (0.00-0.4) % Nucleat RBC Rel Count 0.0 (0.00-0.1) % Eos # (Auto) 0.05 (0-0.5) x10^3/uL Immature Gran # (Auto) 0.04 H (0.00-0.03) x10^3u/L Absolute Lymphs (auto) 0.67 L (1.0-4.6) x10^3/uL Absolute Monos (auto) 0.22 (0.0-1.3) x10^3/uL Absolute Nucleated RBC 0.00 (0.00-0.01) x10^3u/L Lymphocytes % 8.3 L (24.0-44.0) % Monocytes % 2.7 (0.0-12.0) % Eosinophils % 0.6 (0.00-5.0) % Basophils % 0.2 (0.0-0.4) % Absolute Granulocytes 7.04 H (1.4-6.9) x10^3/uL Basophils # 0.02 (0-0.4) x10^3/uL Sodium 133 L (137-145) mmol/L Potassium 3.9 (3.5-5.1) mmol/L Chloride 104 (98-107) mmol/L Carbon Dioxide 25 (22-30) mmol/L Anion Gap 7.4 (5-15) MEQ/L BUN 6 L (7-17) mg/dL Creatinine 0.49 L (0.52-1.04) mg/dL Estimated GFR > 60.0 ML/MIN Glucose 94 (74-106) mg/dL Calcium 7.5 L (8.4-10.2) mg/dL Total Bilirubin 0.30 (0.2-1.3) mg/dL AST 24 (14-36) U/L ALT 16 (0-35) U/L Alkaline Phosphatase 94 (38-126) U/L Serum Total Protein 5.6 L (6.3-8.2) g/dL Albumin 2.8 L (3.5-5.0) g/dL Hep Bs Antigen Negative (Negative) Micro Results-Entire Visit: Microbiology 03/22/22 09:00 Urine Culture - Final Catherized NO GROWTH 03/22/22 08:00 Urine Culture - Final Clean Catch Midstream MIXED WADE; 3 OR MORE TYPES. NO PREDOMINANT ORGANISM. NO FURTHER WORKUP. PLEASE RESUBMIT IF CLINICALLY INDICATED. - Procedures and Test Procedures and Tests throughout Hospitalization: Therapy Orders & Screens 03/22/22 10:00 Smoking Cessation Education ONCE Comment: PT VAPES NICOTIME PODS, "1-2 PODS A WEEK" Diagnosis: IUP Smoking Status: Current some day smoker How long have you smoked: 2 YEARS Have you smoked in the past 12 months: Yes Approximately how many cigarettes per day: 2-3 PODS Do you dip or chew tobacco: No Discharge Exam General Appearance: no apparent distress Neurologic Exam: alert, oriented x 3 Respiratory Exam: normal breath sounds, lungs clear, No respiratory distress Cardiovascular Exam: regular rate/rhythm, normal heart sounds Gastrointestinal/Abdomen Exam: soft, other (incision clean,dry, intact) Final Diagnosis/Problem List - Final Discharge Diagnosis/Problem (1) Delivery by section Current Visit: No Status: Acute Code(s): [id number] - (2) Tubal ligation status Current Visit: Yes Status: Acute Code(s): Z98.51 - TUBAL LIGATION STATUS - Discharge Disposition: Home, Self-Care Condition: Stable Prescriptions: New Hydrocodone/Acetaminophen [Hydrocodone-Acetamin 5-325 mg] 1 tab PO Q6HPRN PRN #28 tablet MDD 4 PRN Reason: Pain Continue Vits W-Ca,Fe,FA(<1Mg) [] 1 tab PO DAILY Ferrous Sulfate 325 mg [Feosol 325 mg] 325 mg PO DAILY Follow up with: RONDA AGARWAL MD [Primary Care Provider] - 1 Week
[2022-03-24] MEDS: FERREX 150 PO SCH (10:35)
[2022-03-24] MEDS: Docusate Sodium 100 MG PO SCH (10:35)
[2022-03-24 14:40] VITALS: BP 124/73
== END 2022-03-24 16:25 | disposition home or self-care (01) | DRG 785 ==
LOC: OB 05:13 → OBSVTOIN 05:14 → OB 05:14
PROVIDERS: ADMIT Family Medicine; ATTEND Family Medicine
PROC: 10D00Z1 Extraction of Products of Conception, Low, Open Approach (ICD-10-PCS; principal; 2022-03-22)
PROC: 0UT70ZZ Resection of Bilateral Fallopian Tubes, Open Approach (ICD-10-PCS; 2022-03-22)
DX: O34.211 Maternal care for low transverse scar from previous cesarean delivery (principal); Z37.0 Single live birth; Z3A.39 39 weeks gestation of pregnancy; Z20.828 Contact with and (suspected) exposure to other viral communicable diseases; Z30.2 Encounter for sterilization
CPT/HCPCS: 36415; 62322; 64488; 76937; 76942; 80053; 80307; 81001; 81015; 85025; 85027; 85610; 85730; 86850; 86900; 86901; 87086; 87340; 90471; 90715; 94799; J0690; J1170; J1200; J1885; J2175; J2250; J2274; J2300; J2590; J3010; L0625; A9270-GY

== ENCOUNTER 2022-03-25 18:52 | Emergency (ER) | payer OTHER ==
[2022-03-25] MEDS ORDERED: Sodium Chloride 0.9% 1000 ML 1,000 ML IV STA (19:18)
--- NOTE | 2022-03-25 19:18 | ERPHSYRPT ---
- History of Present Illness Time Seen by Provider: 03/25/22 19:13 Source: patient Exam Limitations: no limitations Patient Subjective Stated Complaint: pt here for drainage from c/s insicion,pt is breast feeding Triage Nursing Assessment: pt alert, walked in, face mask in place, resp easy, skin w.d.p, has steri strips to lower abd with small amount of yellow drainage noted, wound well approximated Physician History: pt is about 4 days post c section now with some yellow wound drainage. Nontender, with mild erythema and no additional post-op swelling per pt. No reported fevers and lobo diet well per pt , had vomiting on post op day 1 - resolved. Abd is nontender with abd size consistent with SP delivery by C sec tion. Timing/Duration: today Severity: moderate Associated Symptoms: vomiting (2 days ago) Allergies/Adverse Reactions: No Known Drug Allergies Allergy (Verified 03/22/22 05:30) Home Medications: Vits W-Ca,Fe,FA(<1Mg) [] 1 tab PO DAILY 04/30/20 [History] Ferrous Sulfate 325 mg [Feosol 325 mg] 325 mg PO DAILY 03/21/22 [History] Hx Tetanus, Diphtheria Vaccination/Date Given: Yes Hx Influenza Vaccination/Date Given: No Immunizations Up to Date: Yes Travel Risk - International Travel Have you traveled outside of the country in past 3 weeks: No - Coronavirus Screening Are you exhibiting any of the following symptoms?: No Close contact with a COVID-19 positive Pt in past 14-21 Days: No - Vaccine Status Have you recieved a Covid-19 vaccination: No - Review of Systems Constitutional: No Fever, No Chills Eyes: No Symptoms Ears, Nose, & Throat: No Symptoms Respiratory: No Cough, No Dyspnea Cardiac: No Chest Pain, No Edema, No Syncope Abdominal/Gastrointestinal: Vomiting, No Nausea, No Diarrhea Genitourinary Symptoms: No Symptoms, No Dysuria Musculoskeletal: No Symptoms, No Back Pain, No Neck Pain Skin: No Symptoms, No Rash Neurological: No Dizziness, No Focal Weakness, No Sensory Changes Psychological: No Symptoms Endocrine: No Symptoms Hematologic/Lymphatic: No Symptoms Immunological/Allergic: No Symptoms All Other Systems: Reviewed and Negative - Past Medical History Pertinent Past Medical History: No Neurological History: No Pertinent History ENT History: No Pertinent History Cardiac History: No Pertinent History Respiratory History: No Pertinent History Endocrine Medical History: No Pertinent History Musculoskeletal History: Other GI Medical History: No Pertinent History History: No Pertinent History Psycho-Social History: Anxiety, Depression Female Reproductive Disorders: No Pertinent History Other Medical History: FX RT ANKLE 2010 - Past Surgical History Past Surgical History: Yes Neuro Surgical History: No Pertinent History Cardiac: No Pertinent History Respiratory: No Pertinent History Gastrointestinal: No Pertinent History Genitourinary: No Pertinent History Musculoskeletal: No Pertinent History Female Surgical History: Section Other Surgical History: [id number] 2020 - Social History Smoking Status: Current some day smoker How long have you smoked: 2 YEARS Exposure to second hand smoke: Yes Drug Use: none Patient Lives Alone: No - Female History Hx Last Menstrual Period: unure Hx Now: No - Nursing Vital Signs Nursing Vital Signs: Initial Vital Signs Temperature 98.1 F 03/25/22 18:59 Pulse Rate 100 H 03/25/22 18:59 Respiratory Rate 18 03/25/22 18:59 Blood Pressure 142/85 03/25/22 18:59 O2 Sat by Pulse Oximetry 100 03/25/22 18:59 Pain Scale Pain Intensity 5 - Physical Exam General Appearance: no apparent distress, alert Eye Exam: PERRL/EOMI, eyes nml inspection Ears, Nose, Throat Exam: normal ENT inspection, TMs normal, pharynx normal, moist mucous membranes Neck Exam: normal inspection, non-tender, supple, full range of motion Respiratory Exam: normal breath sounds, lungs clear, No respiratory distress Cardiovascular Exam: regular rate/rhythm, normal heart sounds, normal peripheral pulses Gastrointestinal/Abdomen Exam: soft, normal bowel sounds, No tenderness, No mass Pelvic Exam: deferred Rectal Exam: deferred Back Exam: normal inspection, normal range of motion, No CVA tenderness, No vertebral tenderness Extremity Exam: normal inspection, normal range of motion, pelvis stable Neurologic Exam: alert, oriented x 3, cooperative, normal mood/affect, nml cerebellar function, nml station & gait, sensation nml, No motor deficits Skin Exam: normal color, warm, dry, No rash Lymphatic Exam: No adenopathy SpO2 Interpretation: normal SpO2: 100 O2 Delivery: Room Air - Course Nursing assessment & vital signs reviewed: Yes - CT Exams Abdomen/Pelvis CT Interpretation: Discussed w/radiologist, Tele-radiologist Report, No appendicitis, Other (no visible abscess or obvious infection - consistent with post op effectsw. ) Ordered Tests: Active Orders 24 hr Category Date Time Status IV Insertion STAT Care 03/25/22 19:18 Active ABDOMEN AND PELVIS W/0 CONTRAS [CT] Stat Exams 03/25/22 19:18 Taken AMYLASE Stat Lab 03/25/22 19:31 Completed CBC W DIFF Stat Lab 03/25/22 19:31 Completed CMP Stat Lab 03/25/22 19:31 Completed LIPASE Stat Lab 03/25/22 19:31 Completed Lactic Acid Stat Lab 03/25/22 19:25 Completed UA W/RFX CULTURE Stat Lab 03/25/22 Ordered Medication Summary Generic Name Dose Route Start Last Admin Trade Name Freq PRN Reason Stop Dose Admin Cephalexin HCl 500 mg 03/25/22 20:56 Cephalexin Mh500 Mg Capsule PO 03/25/22 20:57 STAT ONE Discontinued Medications Generic Name Dose Route Start Last Admin Trade Name Freq PRN Reason Stop Dose Admin Sodium Chloride 1,000 mls @ 999 mls/hr 03/25/22 19:18 03/25/22 20:28 Sodium Chloride 0.9% 1000 Ml IV 03/25/22 20:18 Infused .Q1H1M STA Infusion Sodium Chloride Confirm 03/25/22 19:26 Sodium Chloride 0.9% 1000 Ml Administered 03/25/22 19:27 Dose 1,000 mls @ ud .ROUTE .STK-MED ONE Lab/Rad Data: Laboratory Result Diagrams 03/25/22 19:31 03/25/22 19:31 Laboratory Results 03/25/22 03/25/22 03/25/22 Range/Units 19:31 19:31 19:25 WBC 5.6 (4.0-10.5) x10^3/uL RBC 3.06 L (4.1-5.4) x10^6/uL Hgb 8.3 L (12.0-16.0) g/dL Hct 26.4 L (35-47) % MCV 86.3 (78-100) fL MCH 27.1 (26-32) pg MCHC 31.4 L (32-36) g/dL RDW 14.1 H (11.5-14.0) % Plt Count 239 (150-450) x10^3/uL MPV 10.4 (7.5-11.0) fL Gran % 68.3 H (36.0-66.0) % Immature Gran % (Auto) 0.4 (0.00-0.4) % Nucleat RBC Rel Count 0.0 (0.00-0.1) % Eos # (Auto) 0.12 (0-0.5) x10^3/uL Immature Gran # (Auto) 0.02 (0.00-0.03) x10^3u/L Absolute Lymphs (auto) 1.27 (1.0-4.6) x10^3/uL Absolute Monos (auto) 0.34 (0.0-1.3) x10^3/uL Absolute Nucleated RBC 0.00 (0.00-0.01) x10^3u/L Lymphocytes % 22.8 L (24.0-44.0) % Monocytes % 6.1 (0.0-12.0) % Eosinophils % 2.2 (0.00-5.0) % Basophils % 0.2 (0.0-0.4) % Absolute Granulocytes 3.80 (1.4-6.9) x10^3/uL Basophils # 0.01 (0-0.4) x10^3/uL Sodium 135 L (137-145) mmol/L Potassium 3.7 (3.5-5.1) mmol/L Chloride 107 (98-107) mmol/L Carbon Dioxide 26 (22-30) mmol/L Anion Gap 4.7 L (5-15) MEQ/L BUN 8 (7-17) mg/dL Creatinine 0.55 (0.52-1.04) mg/dL Estimated GFR > 60.0 ML/MIN Glucose 95 (74-106) mg/dL Lactic Acid 1.0 (0.4-2.0) Calcium 7.6 L (8.4-10.2) mg/dL Total Bilirubin 0.10 L (0.2-1.3) mg/dL AST 39 H (14-36) U/L ALT 30 (0-35) U/L Alkaline Phosphatase 82 (38-126) U/L Serum Total Protein 5.4 L (6.3-8.2) g/dL Albumin 2.6 L (3.5-5.0) g/dL Amylase 49 (30-110) U/L Lipase 47 (23-300) U/L - Progress Progress: improved, re-examined Progress Note: 03/25/22 19:29 discussed risk/benefit of CT and pt wishes to proceed. 03/25/22 20:56 discussed ab with pt risk and benefits and she wishes to continue. Counseled pt/family regarding: lab results, diagnosis, need for follow-up, rad results - Departure Departure Disposition: Home Clinical Impression: Anemia in preg-unspec, mild early superficial skin infection Condition: Good Critical Care Time: No Referrals: RONDA AGARWAL MD [Primary Care Provider] - Follow up/PCP as directed Instructions: Wound Care (DC) Additional Instructions: THere is no drainable abscess seen on CT, but may be early skin wound infection , so we are placing you on keflex, and it is important to followup with your Dr. sunday to consider stopping or changing . Discuss with your Dr. continuing breast feeding being on antibiotics, but if not, you should continue pumping breats to maintain flow so that you can resume. Return meantime if vomiting, abdominal pain dizziness or other concerns, increased redness, drainage or fever. You have some anemia slightly more than previous with hemoglobin of 8.3 which needs to be followed up with your Dr. and minimal liver test elevation . blood pressure is a little high so also follow this up with your Dr. Prescriptions: Cephalexin Mh 500 mg [Keflex 500 mg] 500 mg PO TID #30 cap
[2022-03-25] MEDS ORDERED: Sodium Chloride 0.9% 1000 ML 1,000 ML ONE (19:26)
[2022-03-25 19:35] LABS: Basophil (Absolute #) 0.01 x10^3/uL (0-0.4); Eosinophil % 2.2 % (0.00-5.0); Eosinophil (Absolute #) 0.12 x10^3/uL (0-0.5); Hematocrit 26.4 % (35-47); Hemoglobin 8.3 g/dL (12.0-16.0); Lymphocyte (Absolute #) 1.27 x10^3/uL (1.0-4.6); Lymphocytes % 22.8 % (24.0-44.0); Mean Cell Volume 86.3 fL (78-100); Mean Corpuscular Hemoglobin 27.1 pg (26-32); Mean Corpuscular Hgb Concent. 31.4 g/dL (32-36); Mean Platelet Volume 10.4 fL (7.5-11.0); Monocyte (Absolute #) 0.34 x10^3/uL (0.0-1.3); Monocytes % 6.1 % (0.0-12.0); Neutrophil % 68.3 % (36.0-66.0); Platelet Count 239 x10^3/uL (150-450); Red Blood Count 3.06 x10^6/uL (4.1-5.4); Red Cell Distribution Width 14.1 % (11.5-14.0); White Blood Count 5.6 x10^3/uL (4.0-10.5)
[2022-03-25 19:47] LABS: ALBUMIN 2.6 g/dL (3.5-5.0); ALKALINE PHOSPHATASE 82 U/L (38-126); AMYLASE 49 U/L (30-110); ANION GAP 4.7 MEQ/L (5-15); BLOOD UREA NITROGEN 8 mg/dL (7-17); CHLORIDE 107 mmol/L (98-107); Calcium 7.6 mg/dL (8.4-10.2); Carbon Dioxide 26 mmol/L (22-30); Creatinine 1 0.55 mg/dL (0.52-1.04); EST GLOMERULAR FILTRATION RATE > 60.0 ML/MIN; Glucose 95 mg/dL (74-106); LIPASE 47 U/L (23-300); Potassium 3.7 mmol/L (3.5-5.1); SGOT/AST 39 U/L (14-36); SGPT/ALT 30 U/L (0-35); SODIUM 135 mmol/L (137-145); Total Protein 5.4 g/dL (6.3-8.2)
[2022-03-25] MEDS ORDERED: KEFLEX 500 MG PO ONE (20:56)
[2022-03-25] MEDS ORDERED: KEFLEX 500 MG ONE (21:03)
[2022-03-25 21:29] VITALS: BP 115/85; PULSE 75; O2SAT 99
--- NOTE | 2022-03-25 21:46 | XRAY ---
Indication: Incisional pain and leakage. Status post section 4 days ago. Multiple contiguous axial images obtained through the abdomen and pelvis without contrast. Comparison: None Lung bases clear. Heart not enlarged. Stomach distended with food/fluid. Moderate diffuse scattered colonic fecal debris throughout. Markedly enlarged uterus consistent with recent . Tiny pelvic free fluid/air bubbles and abdominal wall induration/air bubbles consistent with recent . No walled off fluid collection/abscess. Urinary bladder distended with intraluminal air either from recent catheterization versus gas-forming bacterial infection. Incidental 13 cm splenomegaly. Remaining liver, gallbladder, pancreas, adrenal glands, kidneys, ureters, and aorta are unremarkable for noncontrast exam. Osseous structures intact. Impression: 1. Enlarged uterus consistent with recent . Tiny pelvic free fluid/air and abdominal wall induration/air bubbles consistent with recent section. 2. Urinary bladder intraluminal air either from recent catheterization versus gas-forming bacterial infection. 3. Incidental diffuse fecal stasis and splenomegaly. Comment: Preliminary interpretation made by [facility]. No critical discrepancy.
== END 2022-03-25 21:26 | disposition home or self-care (01) ==
LOC: ED 18:52
DX: O90.81 Anemia of the puerperium (principal); D64.9 Anemia, unspecified; O86.01 Infection of obstetric surgical wound, superficial incisional site; Z72.0 Tobacco use; Z28.310 Unvaccinated for COVID-19
CPT/HCPCS: 36000; 36415; 74176; 80053; 82150; 83605; 83690; 85025; 87070; 99284; A9270-GY